=== PATIENT | female | born 1980 | race Caucasian/White ===

== ENCOUNTER 2017-02-04 01:02 | Emergency (ER) | payer OTHER, BC | END 2017-02-04 01:22 | disposition left against medical advice (07) | LOC: EME → EDBD 01:02 → EME 01:22 | DX: Z04.1 Encounter for examination and observation following transport accident (principal); F10.129 Alcohol abuse with intoxication, unspecified; Z53.20 Procedure and treatment not carried out because of patient's decision for unspecified reasons ==